=== PATIENT | male | born 1965 | race Caucasian/White ===

== ENCOUNTER 2016-12-04 09:17 | Emergency (ER) | payer OTHER ==
[2016-12-04 09:22] VITALS: BMI 25.1
[2016-12-04] MEDS ORDERED: IBUPROFEN 600 MG TABLET (FP) PO ONE ×2 (09:33→09:40)
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
[2016-12-04 10:21] VITALS: TEMP 97.7
[2016-12-04 10:43] VITALS: BP 116/70; PULSE 65
== END 2016-12-04 10:43 | disposition home or self-care (01) ==
LOC: JER 09:17
DX: S46.911A Strain of unspecified muscle, fascia and tendon at shoulder and upper arm level, right arm, initial encounter (principal); S39.012A Strain of muscle, fascia and tendon of lower back, initial encounter; X58.XXXA Exposure to other specified factors, initial encounter; Y93.89 Activity, other specified; Y92.89 Other specified places as the place of occurrence of the external cause; Y99.0 Civilian activity done for income or pay
CPT/HCPCS: 99284-25